=== PATIENT | male | born 1970 | race Caucasian/White ===

== ENCOUNTER 2022-09-14 19:35 | Emergency (ER) | payer OTHER ==
[~2022-09-14] VITALS: Ht 154.9 cm; Wt 81.6 kg
[2022-09-14 20:00] VITALS: BP 197/115
--- NOTE | 2022-09-14 20:03 | NUR ---
TO LOBBY A/W BED AMBULATORY
--- NOTE | 2022-09-14 20:43 | NUR ---
PT TAKEN TO BED 8
--- NOTE | 2022-09-14 21:01 | NUR ---
Dr. Banuelos examining patient.
--- NOTE | 2022-09-14 21:20 | NUR ---
FIRST CONTACT WITH PT. PT IN POSITION OF COMFORT. PT UPDATED ON POC WITH FULL RETURNED VERBAL UNDERSTANDING. IV ESTABLISHED, BLOOD DRAWN. WILL CONTINUE WITH ANY OTHER ORDERS AT THIS TIME.
[2022-09-14 21:27] LABS: BASOPHILS # (AUTO) 0.1 K/uL (0.00-0.22); BASOPHILS % (AUTO) 0.6 % (0.0-2.0); HEMATOCRIT 42.7 % (36-52); HEMOGLOBIN 14.6 g/dL (12.0-18.0); LYMPHOCYTES # (AUTO) 1.3 K/uL (2.0-11.5); LYMPHOCYTES % (AUTO) 8.3 % (20.5-51.1); MEAN CORPUSCULAR HEMOGLOBIN 30 pg (27-31); MEAN CORPUSCULAR HGB CONC 34 g/dL (33-37); MEAN CORPUSCULAR VOLUME 86.3 fL (80-94); MONOCYTES # (AUTO) 0.6 K/uL (0.8-1.0); MONOCYTES % (AUTO) 3.9 % (1.7-9.3); NEUTROPHILS # (AUTO) 13.6 K/uL (1.8-7.7); NEUTROPHILS % (AUTO) 87.2 % (42.2-75.2); PLATELET COUNT (AUTO) 278 K/uL (140-450); RED BLOOD CELL COUNT(AUTO) 4.95 MIL/uL (4.20-6.10); RED CELL DISTRIBUTION WIDTH 13.4 % (11.6-13.7); WHITE BLOOD COUNT (AUTO) 15.6 K/uL (4.8-10.8)
--- NOTE | 2022-09-14 21:31 | NUR ---
X-Ray at bedside.
[2022-09-14 21:53] LABS: ALBUMIN 3.8 g/dL (3.4-5.0); ANION GAP 15.2 (8-16); CARBON DIOXIDE 27.5 mmol/L (21-32); CREATININE 1.1 mg/dL (0.6-1.3); POTASSIUM 3.7 mmol/L (3.5-5.1); TOTAL BILIRUBIN 0.6 mg/dL (0.0-1.0)
--- NOTE | 2022-09-14 22:15 | NUR ---
PT TO CT
[2022-09-14] MEDS ORDERED: AMLO10TA PO (22:46)
[2022-09-14] MEDS ORDERED: LISI40TA12 PO (22:46)
[2022-09-14] MEDS ORDERED: METO25TA PO (22:46)
--- NOTE | 2022-09-14 22:54 | NUR ---
PT BACK FROM CT
[2022-09-14] MEDS ORDERED: MECLIZINE 25 MG TAB PO ONE (22:55)
--- NOTE | 2022-09-14 23:00 | NUR ---
PT AWARE OF B/P NO ORDERS AT THIS TIME.
--- NOTE | 2022-09-14 23:11 | NUR ---
PT UP AND AMBULATES TO RESTROOM WITH SLOW STEADY GAIT.
--- NOTE | 2022-09-15 01:11 | NUR ---
PT RESTING, NO S/S OF DISTRESS NOTED. VSS. WILL CONTINUE TO MONITOR. DENIES ANY PAIN OR NEEDS AT THIS TIME.
[2022-09-15] MEDS ORDERED: diazePAM 5 MG TAB PO ONE (02:20)
[2022-09-15] MEDS ORDERED: METO-744 PO (02:22)
[2022-09-15] MEDS ORDERED: LISI40TA12 PO (02:22)
[2022-09-15] MEDS ORDERED: AMLO10TA PO (02:22)
--- NOTE | 2022-09-15 03:20 | NUR ---
Dr. Khan examining patient.
[2022-09-15] MEDS ORDERED: DIAZ5TAB6 PO (03:30)
[2022-09-15] MEDS ORDERED: ONDA8TAB87 PO (03:32)
--- NOTE | 2022-09-15 03:53 | NUR ---
Patient discharged with v/s stable. Written and verbal after care instructions given and explained. Patient alert, oriented and verbalized understanding of instructions. Ambulatory with steady gait. All questions addressed prior to discharge. ID band removed. Patient advised to follow up with PMD. Rx of AMLODIPINE,VALIUM,LISINOPRIL,METOPROLOL given. Patient educated on indication of medication including possible reaction and side effects. Opportunity to ask questions provided and answered.
[2022-09-15 03:54] VITALS: BP 138/83
== END 2022-09-15 03:53 | disposition home or self-care (01) ==
LOC: MED 19:35
DX: I10 Essential (primary) hypertension (principal); R11.2 Nausea with vomiting, unspecified; R07.9 Chest pain, unspecified; R42 Dizziness and giddiness; Z20.822 Contact with and (suspected) exposure to COVID-19; R19.7 Diarrhea, unspecified; Z79.899 Other long term (current) drug therapy
CPT/HCPCS: 36415; 70450; 70496; 70498; 71045; 71275; 80053; 83880; 84484; 85025; 87426; 93005; 99285; J8597; Q0092; Q9967